=== PATIENT | female | born 1990 | race Two or more races ===

== ENCOUNTER 2021-10-08 07:38 | Inpatient (IN) | payer OTHER ==
[~2021-10-08] VITALS: Ht 152.4 cm; Wt 72.6 kg
[2021-10-08] MEDS ORDERED: PRENATAL CAPLE1 EAC1 PO (10:04)
[2021-10-11] MEDS ORDERED: COLACE100 MG PO (17:17)
[2021-10-11] MEDS ORDERED: PERCOCET 5-3251 EACH PO (17:17)
[2021-10-11] MEDS ORDERED: MOTRIN IB200 M1 PO (17:17)
== END 2021-10-11 17:32 | disposition home or self-care (01) | DRG 788 ==
LOC: EDBD 07:38 → OB/GYN 07:38 → LDR 07:38 → OB/GYN 23:29
PROVIDERS: ADMIT Student in an Organized Health Care Education/Training Program; ATTEND Student in an Organized Health Care Education/Training Program
PROC: 4A1HXCZ Monitoring of Products of Conception, Cardiac Rate, External Approach (ICD-10-PCS; 2021-10-08)
PROC: 10D00Z1 Extraction of Products of Conception, Low, Open Approach (ICD-10-PCS; principal; 2021-10-08 19:00)
DX: O26.813 Pregnancy related exhaustion and fatigue, third trimester (principal); Z20.822 Contact with and (suspected) exposure to COVID-19; Z37.0 Single live birth